=== PATIENT | male | born 1980 | race Caucasian/White ===

== ENCOUNTER 2023-11-13 18:03 | Emergency (ER) | payer SELFPAY ==
[2023-11-13] MEDS ORDERED: Lidocaine 1% 5 ML VIAL INJECT ONE (19:29)
[2023-11-13] MEDS ORDERED: Bupivacaine 0.5% 10 ML SDV INJECT ONE (19:29)
[2023-11-13 20:15] VITALS: BP 136/102; PULSE 72
== END 2023-11-13 20:15 | disposition home or self-care (01) ==
LOC: MW.ED 18:03
DX: K02.9 Dental caries, unspecified (principal)
CPT/HCPCS: 64400; 99282; J0665; J3490